=== PATIENT | female | born 1970 | race African-American/Black ===

== ENCOUNTER 2016-05-21 18:18 | Emergency (ER) | payer BC ==
--- NOTE | 2016-05-21 20:11 | ED ---
elmira Vo Timothy, scribed for Aston Lugo MD on 05/21/16 at 2002 . HPI Chest Pain - HPI Summary HPI Summary: Neyda Vazquez is a 45 yo female presenting to [facility] with frequent, irritiating cough since 05/17/16 now with 8/10 CP and HARRINGTON, getting progressively worse. She also c/o myalgia. She states the CP became burning, which is why she is presenting tonight. She states she has not checked to see if she has a fever. She states when she coughs there is pain radiating through her back and increasing in her chest. Her Hx includes nephrolithiasis. She does not smoke tobacco. - History of Current Complaint Chief Complaint: EDShortnessOfBreath Time Seen by Provider: 05/21/16 19:54 Onset/Duration: Started Days Ago, Still Present, Worse Since - today Timing: Constant Initial Severity: Moderate Current Severity: Moderate Pain Intensity: 8 Pain Scale Used: 0-10 Numeric Character: Burning Aggravating Factor(s): Other: - cough - Allergy/Home Medications Allergies/Adverse Reactions: Allergies Allergy/AdvReac Type Severity Reaction Status Date / Time No Known Allergies Allergy Verified 10/26/14 05:03 PMH/Surg Hx/FS Hx/Imm Hx Endocrine/Hematology History: Denies: Hx Diabetes, Hx Thyroid Disease Cardiovascular History: Denies: Hx Hypertension Respiratory History: Denies: Hx Asthma, Hx Chronic Obstructive Pulmonary Disease (COPD) GI History: Denies: Hx Ulcer History: Reports: Other Problems/Disorders - HX RENAL CALCULI - Surgical History Surgery Procedure, Year, and Place: Infectious Disease History: No Infectious Disease History: Denies: Hx Clostridium Difficile, Hx Hepatitis, Hx Human Immunodeficiency Virus (HIV), Hx of Known/Suspected MRSA, Hx Shingles, Hx Tuberculosis, Hx Known/ Suspected VRE, Hx Known/Suspected VRSA, History Other Infectious Disease, Traveled Outside the [place] in Last 30 Days - Family History Known Family History: Positive: Hypertension, Diabetes Negative: Cardiac Disease - Social History Alcohol Use: Rare Substance Use Type: Reports: None Smoking Status (MU): Never Smoked Tobacco Have You Smoked in the Last Year: No Review of Systems Positive: Fever - possible Eyes: Negative ENT: Negative Positive: Chest Pain Positive: Cough Gastrointestinal: Negative Genitourinary: Negative Positive: Myalgia Skin: Negative Positive: Headache Psychological: Normal All Other Systems Reviewed And Are Negative: Yes Physical Exam Triage Information Reviewed: Yes Vital Signs On Initial Exam: Initial Vitals Temp Pulse Resp BP Pulse Ox 98.9 F 88 20 134/80 100 05/21/16 18:30 05/21/16 18:30 05/21/16 18:30 05/21/16 18:30 05/21/16 18:30 Vital Signs Reviewed: Yes Appearance: Positive: Well-Appearing, No Pain Distress Skin: Positive: Warm Head/Face: Positive: Normal Head/Face Inspection Eyes: Positive: CRISTINA ENT: Positive: Hearing grossly normal Neck: Positive: Supple Respiratory/Lung Sounds: Positive: Clear to Auscultation, Breath Sounds Present Cardiovascular: Positive: RRR Abdomen Description: Positive: Nontender, Soft Bowel Sounds: Positive: Present Musculoskeletal: Positive: Strength/ROM Intact Neurological: Positive: Sensory/Motor Intact, Alert, Oriented to Person Place, Time Diagnostics - Vital Signs Vital Signs Temp Pulse Resp BP Pulse Ox 05/21/16 18:30 98.9 F 88 20 134/80 100 - Laboratory Lab Statement: Any lab studies that have been ordered have been reviewed, and results considered in the medical decision making process. - Radiology CXR Xray Interpretation: No Acute Changes - IMPRESSION: NO ACTIVE CARDIOPULMONARY DISEASE. Radiology Interpretation Completed By: Radiologist - EKG 1856 Cardiac Rate: NL - 88 BPM EKG Interpretation: NSR @ 88 BPM. Normal EKG. Re-Evaluation - Re-Evaluation First Eval Re-Evaluation Time: 21:34 Change: Improved Comment: Pt was informed of results of flu test, and given additional instructions regarding treatment. Chest Pain Course/Dx - Course Assessment/Plan: Neyda Vazquez is a 45 yo female presenting to [facility] with 8/10 CP, HARRINGTON, and persistent cough since 05/17/16. After negative CXR and negative rapid flu tests, she will be discharged home with viral syndrome. - Diagnoses Provider Diagnoses: Viral syndrome Discharge - Discharge Plan Condition: Stable Disposition: HOME Patient Education Materials: Viral Syndrome (ED) Referrals: Vishal Fuller MD [Primary Care Provider] - 2 Days Additional Instructions: Please follow up with your primary care physician regarding your visit to the emergency department today. Return to the emergency department with any new or recurring symptoms. The documentation as recorded by the elmira hinojosa Timothy accurately reflects the service I personally performed and the decisions made by me, Aston Lugo MD.
--- NOTE | 2016-05-21 20:16 | RAD ---
HISTORY: Chest pain COMPARISONS: January 16, 2014 VIEWS: 2: Frontal dual-energy and lateral views of the chest. FINDINGS: CARDIOMEDIASTINAL SILHOUETTE: The cardiomediastinal silhouette is normal. TRACY: The tracy are normal. PLEURA: The costophrenic angles are sharp. No pleural abnormalities are noted. LUNG PARENCHYMA: The lungs are clear. ABDOMEN: The upper abdomen is clear. There is no subphrenic gas. BONES AND SOFT TISSUES: No bone or soft tissue abnormalities are noted. OTHER: None. IMPRESSION: NO ACTIVE CARDIOPULMONARY DISEASE.
[2016-05-21] MEDS ORDERED: Ketorolac INJ* 60 MG/2 ML VIAL IM ONE (20:39)
[2016-05-21 22:00] VITALS: BP 124/85
== END 2016-05-21 21:57 | disposition home or self-care (01) ==
LOC: ED 18:18
DX: B34.9 Viral infection, unspecified (principal); R05 Cough; R07.9 Chest pain, unspecified; R50.9 Fever, unspecified; R51 Headache
CPT/HCPCS: 71020; 87502; 93005; 96372; 99283; J1885

== ENCOUNTER 2017-01-20 16:06 | Emergency (ER) | payer BC ==
[2017-01-20 16:23] VITALS: BP 109/50
--- NOTE | 2017-01-20 16:46 | UC ---
Skin Complaint HPI - HPI Summary HPI Summary: 46 year old female presents with lower back pain secondary to sleeping on a low bed. - History of Current Complaint Chief Complaint: UCBackPain Time Seen by Provider: 01/20/17 16:42 Stated Complaint: BACK PAIN Hx Obtained From: Patient Hx Last Menstrual Period: 12/17 Onset/Duration: Sudden Onset Skin Exposure Onset/Duration: Days Ago Onset Severity: Moderate Current Severity: Moderate Pain Scale Used: 0-10 Numeric - 8 Alleviating Factor(s): Nothing - Allergy/Home Medications Allergies/Adverse Reactions: Allergies Allergy/AdvReac Type Severity Reaction Status Date / Time No Known Allergies Allergy Verified 10/26/14 05:03 Review of Systems Constitutional: Negative Skin: Negative Eyes: Negative ENT: Negative Respiratory: Negative Cardiovascular: Negative Gastrointestinal: Negative Genitourinary: Negative Motor: Negative Neurovascular: Negative Musculoskeletal: Other: - lower back pain Neurological: Negative Psychological: Negative All Other Systems Reviewed And Are Negative: Yes PMH/Surg Hx/FS Hx/Imm Hx Previously Healthy: Yes - Surgical History Surgical History: Yes Surgery Procedure, Year, and Place: - Family History Known Family History: Positive: Hypertension, Diabetes Negative: Cardiac Disease - Social History Alcohol Use: Rare Substance Use Type: None Smoking Status (MU): Never Smoked Tobacco Have You Smoked in the Last Year: No Physical Exam Triage Information Reviewed: Yes Appearance: Pain Distress Vital Signs: Initial Vital Signs Temp 37.1 C 01/20/17 16:18 Pulse 91 01/20/17 16:18 Resp 18 01/20/17 16:18 BP 109/50 01/20/17 16:18 Pulse Ox 100 01/20/17 16:18 Vital Signs Reviewed: Yes Eye Exam: Normal ENT Exam: Normal Dental Exam: Normal Neck exam: Normal Neck: Positive: 1 Respiratory Exam: Normal Cardiovascular Exam: Normal Abdominal Exam: Normal Musculoskeletal: Positive: Other: - lower back pain Neurological Exam: Normal Psychological Exam: Normal Skin Exam: Normal Course/Dx - Diagnoses Provider Diagnoses: lower back pain Discharge - Discharge Plan Condition: Stable Disposition: HOME Prescriptions: Methocarbamol TAB* [Robaxin 500 MG TAB*] 500 mg PO TID PRN #30 tab PRN Reason: Spasms - Back Methylprednisolone [Medrol Dosepak 4 MG*] 4 mg PO .SEE ROSEANNE INSTRUCTION #21 tab Patient Education Materials: Sacroiliitis (ED) Referrals: Vishal Fuller MD [Primary Care Provider] -
== END 2017-01-20 17:00 | disposition home or self-care (01) ==
LOC: UCEAST 16:06
DX: M54.5 Low back pain (principal)
CPT/HCPCS: 99212; G0463

== ENCOUNTER 2017-02-11 21:46 | Emergency (ER) | payer BC ==
[2017-02-11 23:49] LABS: Hematocrit 27 % (35-47); Hemoglobin 8.5 g/dl (12.0-16.0); Mean Corpuscular HGB Conc 32 g/dl (31-36); Mean Corpuscular Hemoglobin 24 pg (27-31); Mean Corpuscular Volume 74 fL (80-97); Mean Platelet Volume 8 um3 (7.4-10.4); Red Blood Count 3.59 10^6/ul (4.0-5.4); Red Cell Distribution Width 17 % (10.5-15); White Blood Count 6.8 10^3/ul (3.5-10.8)
[2017-02-11 23:57] LABS: Add Diff/Slide Review? Slide Review Added; Comments Flag Yes
[2017-02-12 00:21] LABS: Albumin 3.6 g/dL (3.2-5.2); Calcium 9.1 mg/dL (8.6-10.3); EGFR African American 126.8 (>60); EGFR Non-African American 98.6 (>60); Globulin 3.6 g/dL (2-4); Potassium 3.5 mmol/L (3.5-5.0); Total Bilirubin 0.3 mg/dL (0.2-1.0); Total Protein 7.2 g/dL (6.4-8.9)
[2017-02-12 00:22] LABS: Troponin I 0.01 ng/mL (<0.04)
[2017-02-12 01:13] VITALS: BP 133/79
--- NOTE | 2017-02-12 03:53 | ED ---
Jolynn Vo Edward, scribed for Tasneem Stein MD on 02/11/17 at 2325 . HPI Chest Pain - HPI Summary HPI Summary: 46 y/o female presents to the ED c/o CP and neck pain that has been going on intermittently for around 1 month. Pt states the pain has gotten worse recently. Pt states the CP is mild now. The CP is located in the mid-sternal region described as a sharp pain. Pt states the pain sometimes moves to the L side of her chest. The pain is not aggravated or alleviated by anything. Denies diaphoresis, SOB, N/V. Associated sx: mild HARR[place], fatigue. The neck pain is located at the back of the neck, at midline. Denies relevant PMHx. - History of Current Complaint Chief Complaint: EDGeneral Time Seen by Provider: 02/11/17 23:08 Hx Obtained From: Patient Hx Last Menstrual Period: 12/17 Onset/Duration: Started Weeks Ago Timing: Intermittent Initial Severity: Moderate Current Severity: Moderate Pain Intensity: 4 Pain Scale Used: 0-10 Numeric Chest Pain Location: Mid Sternal Chest Pain Radiates: Yes Chest Pain Radiates To:: Other - L side chest Character: Sharp/Stabbing Aggravating Factor(s): Nothing Alleviating Factor(s): Nothing Associated Signs and Symptoms: Positive: Headaches - mild, Other: - neck pain, fatigue - Allergy/Home Medications Allergies/Adverse Reactions: Allergies Allergy/AdvReac Type Severity Reaction Status Date / Time No Known Allergies Allergy Verified 02/11/17 21:52 PMH/Surg Hx/FS Hx/Imm Hx Previously Healthy: No Endocrine/Hematology History: Denies: Hx Diabetes, Hx Thyroid Disease Cardiovascular History: Denies: Hx Hypertension Respiratory History: Denies: Hx Asthma, Hx Chronic Obstructive Pulmonary Disease (COPD) GI History: Denies: Hx Ulcer History: Reports: Other Problems/Disorders - HX RENAL CALCULI - Surgical History Surgery Procedure, Year, and Place: - Immunization History Date of Influenza Vaccine: none Infectious Disease History: No Infectious Disease History: Denies: Hx Clostridium Difficile, Hx Hepatitis, Hx Human Immunodeficiency Virus (HIV), Hx of Known/Suspected MRSA, Hx Shingles, Hx Tuberculosis, Hx Known/ Suspected VRE, Hx Known/Suspected VRSA, History Other Infectious Disease, Traveled Outside the [place] in Last 30 Days - Family History Known Family History: Positive: Hypertension, Diabetes Negative: Cardiac Disease - Social History Lives: With Family Alcohol Use: Rare Hx Substance Use: No Substance Use Type: Reports: None Hx Tobacco Use: No Smoking Status (MU): Never Smoked Tobacco Have You Smoked in the Last Year: No Review of Systems Positive: Fatigue Eyes: Negative ENT: Negative Positive: Chest Pain Respiratory: Negative Gastrointestinal: Negative Genitourinary: Negative Positive: Myalgia - Neck pain Skin: Negative Positive: Headache - mild Psychological: Normal All Other Systems Reviewed And Are Negative: No Physical Exam - Summary Physical Exam Summary: Appearance: Alert, conversive, nontoxic appearing Skin: Warm, dry, no mottling, no rashes, no contusions HEENT: EOMI, PERRL, moist mucous membranes Neck: No masses on the neck, supple Respiratory: Clear to auscultation, breath sounds present, no rales, no rhonchi , no wheezes Cardiovascular: RRR, pulses are symmetrical in both lower and upper extremities Abdomen: Soft, non-tender Bowel Sounds: Present Musculoskeletal: No CVA tenderness, no obvious deformity, moving all extremities in a grossly normal manner Neurological: A&Ox3, CN II-XII Intact, moving all extremities symmetrically Psychiatric: Normal affect and mood Triage Information Reviewed: Yes Vital Signs On Initial Exam: Initial Vitals Temp Pulse Resp BP Pulse Ox 98.6 F 74 18 123/76 100 02/11/17 21:47 02/11/17 21:47 02/11/17 21:47 02/11/17 21:47 02/11/17 21:47 Vital Signs Reviewed: Yes - [place] Coma Scale Coma Scale Total: 15 Diagnostics - Vital Signs Vital Signs Temp Pulse Resp BP Pulse Ox 02/11/17 21:47 98.6 F 74 18 123/76 100 - Laboratory Lab Results: Lab Results 02/11/17 02/11/17 02/11/17 Range/Units 23:23 23:23 23:23 WBC 6.8 (3.5-10.8) 10^3/ul RBC 3.59 L (4.0-5.4) 10^6/ul Hgb 8.5 L (12.0-16.0) g/dl Hct 27 L (35-47) % MCV 74 L (80-97) fL MCH 24 L (27-31) pg MCHC 32 (31-36) g/dl RDW 17 H (10.5-15) % Plt Count 282 (150-450) 10^3/ul MPV 8 (7.4-10.4) um3 Neut % (Auto) 61.8 (38-83) % Lymph % (Auto) 28.3 (25-47) % [place] % (Auto) 8.3 (1-9) % Eos % (Auto) 1.2 (0-6) % Baso % (Auto) 0.4 (0-2) % Absolute Neuts (auto) 4.2 (1.5-7.7) 10^3/ul Absolute Lymphs (auto) 1.9 (1.0-4.8) 10^3/ul Absolute Monos (auto) 0.6 (0-0.8) 10^3/ul Absolute Eos (auto) 0.1 (0-0.6) 10^3/ul Absolute Basos (auto) 0 (0-0.2) 10^3/ul Absolute Nucleated RBC 0 10^3/ul Nucleated RBC % 0.1 D-Dimer, Quantitative < 200 (Less Than 230) ng/mL Sodium 135 (133-145) mmol/L Potassium 3.5 (3.5-5.0) mmol/L Chloride 105 (101-111) mmol/L Carbon Dioxide 26 (22-32) mmol/L Anion Gap 4 (2-11) mmol/L BUN 13 (6-24) mg/dL Creatinine 0.65 (0.51-0.95) mg/dL Est GFR ( Amer) 126.8 (>60) Est GFR (Non-Af Amer) 98.6 (>60) BUN/Creatinine Ratio 20.0 (8-20) Glucose 113 H (70-100) mg/dL Calcium 9.1 (8.6-10.3) mg/dL Total Bilirubin 0.30 (0.2-1.0) mg/dL AST 15 (13-39) U/L ALT 11 (7-52) U/L Alkaline Phosphatase 58 (34-104) U/L Troponin I 0.01 (<0.04) ng/mL Total Protein 7.2 (6.4-8.9) g/dL Albumin 3.6 (3.2-5.2) g/dL Globulin 3.6 (2-4) g/dL Albumin/Globulin Ratio 1.0 (1-3) Lipase 15 (11.0-82.0) U/L Result Diagrams: 02/11/17 23:23 02/11/17 23:23 Lab Statement: Any lab studies that have been ordered have been reviewed, and results considered in the medical decision making process. - Radiology CXR Xray Interpretation: No Acute Changes Radiology Interpretation Completed By: ED Physician - EKG 1 EKG Interpretation: 22:05 - SR @ 67 BPM. NORMAL AXIS. NO STEMI. Chest Pain Course/Dx - Course Assessment/Plan: 46 y/o female presents to the ED c/o CP and neck pain that has been going on intermittently for around 1 month. Pt states the pain has gotten worse recently. The CP is mild currently. The CP is located in the mid-sternal region described as a sharp pain. Pt states the pain sometimes moves to the L side of her chest. The pain is not aggravated or alleviated by anything. Denies diaphoresis, SOB, N/V. The neck pain is located at the back of the neck, at midline. Denies relevant PMHx. Test results show chronic anemia. CXR negative. Pt will be d/c home and instructed to f/u with an outpatient stress test. - Diagnoses Provider Diagnoses: Chest pain, Neck pain Discharge - Discharge Plan Condition: Stable Disposition: HOME Patient Education Materials: Chest Pain (ED), Anemia (ED) Referrals: Vishal Fuller MD [Primary Care Provider] - 3 Days Additional Instructions: Follow up with your primary care physician. return if worse or any new symptoms. It is important to discuss with your doctor the need for an outpatient cardiac stress test. Please also discuss with your doctor your anemia. You labs show that you probably have iron deficiency anemia. discuss with your doctor the need to start iron pills. this has been ongoing when I reviewed your labs, however, it is important to discuss with your doctor. The documentation as recorded by the Jolynn hinojosa Edward accurately reflects the service I personally performed and the decisions made by me, Tasneem Stein MD.
--- NOTE | 2017-02-12 07:48 | RAD ---
HISTORY: Chest pain COMPARISONS: May 21, 2016 VIEWS: 1: frontal portable view of the chest at 11:15 PM FINDINGS: LINES AND TUBES: None. CARDIOMEDIASTINAL SILHOUETTE: The cardiomediastinal silhouette is normal for portable technique. PLEURA: The costophrenic angles are sharp. No pleural abnormalities are noted. LUNG PARENCHYMA: The lungs are clear. ABDOMEN: The upper abdomen is clear. There is no subphrenic gas. BONES AND SOFT TISSUES: No bone or soft tissue abnormalities are noted. IMPRESSION: NO ACTIVE CARDIOPULMONARY DISEASE.
== END 2017-02-12 01:09 | disposition home or self-care (01) ==
LOC: ED 21:46
DX: R07.89 Other chest pain (principal); M54.2 Cervicalgia; R51 Headache; R53.83 Other fatigue
CPT/HCPCS: 36415; 71010; 80053; 83690; 84484; 85025; 85379; 93005; 99282

== ENCOUNTER 2017-05-25 15:15 | Emergency (ER) | payer BC ==
[2017-05-25 15:39] VITALS: BP 136/75
--- NOTE | 2017-05-25 15:40 | UC ---
Abdominal Pain Female HPI - HPI Summary HPI Summary: Pt presents with abdominal pain and vomiting for 5 days. She tells me that on Sunday she began having generalized abdominal pain and vomiting - unable to tolerate food or liquids. This persisted through sunday night. Sunday she woke and felt a little better, but very weak. Yesterday evening she tried to eat dinner, but quickly developed stabbing abdominal pain and began vomiting again. She was unable to sleep all last night and this morning her pain and vomiting persisted. Today she is always having pain in her RLQ and right flank. Says that she has a history of kidney stones and is unsure if this feels the same. Denies fever, chills, SOB, chest pain, or diarrhea. - History of Current Complaint Stated Complaint: VOMITING Time Seen by Provider: 05/25/17 15:39 Hx Obtained From: Patient Hx Last Menstrual Period: 12/17 Severity Initially: Severe Severity Currently: Severe Pain Intensity: 10 Pain Scale Used: 0-10 Numeric Location: Diffuse Radiates: Yes Radiates to: Flank, RLQ Character: Colicy, Cramping, Sharp Aggravating Factor(s): Food Alleviating Factor(s): Nothing Allergies/Adverse Reactions: Allergies Allergy/AdvReac Type Severity Reaction Status Date / Time No Known Allergies Allergy Verified 05/25/17 15:30 PMH/Surg Hx/FS Hx/Imm Hx Previously Healthy: Yes - Surgical History Surgical History: Yes Surgery Procedure, Year, and Place: - Family History Known Family History: Positive: Hypertension, Diabetes Negative: Cardiac Disease - Social History Lives: With Family Alcohol Use: Rare Substance Use Type: None Smoking Status (MU): Never Smoked Tobacco Have You Smoked in the Last Year: No Review of Systems Constitutional: Negative Skin: Negative Eyes: Negative ENT: Negative Respiratory: Negative Cardiovascular: Negative Gastrointestinal: Abdominal Pain, Vomiting, Nausea Genitourinary: Negative Motor: Negative Musculoskeletal: Negative Neurological: Negative Psychological: Negative All Other Systems Reviewed And Are Negative: Yes Physical Exam Triage Information Reviewed: Yes Appearance: Ill-Appearing, Pain Distress, Other: - Lips are dry and she appears dehydrated Vital Signs Reviewed: Yes Neck: Positive: Supple, Nontender, No Lymphadenopathy Respiratory: Positive: Lungs clear, Normal breath sounds, No respiratory distress, No accessory muscle use Cardiovascular: Positive: RRR, No Murmur, Pulses Normal Abdomen Description: Positive: No Organomegaly, Soft, Other: - Generalized mild to moderate TTP. Negative: CVA Tenderness (R), CVA Tenderness (L), Distended, Guarding, Peritoneal Signs, Pulsatile Mass Bowel Sounds: Positive: Present Neurological: Positive: Alert Skin: Negative: rashes, significant lesion(s) Abd Pain Female Course/Dx - Course Course Of Treatment: Given patient's prolonged vomiting, history, and concerning exam, I strongly recommened pt seek further evaluation in the ED. I offered to call them an ambulance, but she declined and will have her drive her to [facility]. Left in stable condition. - Differential Dx/Diagnosis Provider Diagnoses: Vomiting. Abdominal pain Discharge - Discharge Plan Condition: Stable Disposition: OTHER Discharge Disposition Comment: To [facility] by private car - driving Referrals: Vishal Fuller MD [Primary Care Provider] - Additional Instructions: Please go directly to the ED for further evaluation of your vomiting and severe abdominal pain
== END 2017-05-25 15:44 ==
LOC: UCEAST 15:15
DX: R10.31 Right lower quadrant pain (principal); R11.10 Vomiting, unspecified; Z87.442 Personal history of urinary calculi
CPT/HCPCS: 99212; G0463

== ENCOUNTER 2017-05-25 16:05 | Emergency (ER) | payer BC ==
[2017-05-25] MEDS ORDERED: NS 0.9% 1000 ML* 1,000 ML IV ONE (17:44)
[2017-05-25] MEDS ORDERED: Ketorolac INJ* 30 MG/ML 1 ML VIAL IV PUSH ONE (17:44)
[2017-05-25] MEDS ORDERED: Acetaminophen TAB* 325 MG PO ONE (17:44)
[2017-05-25] MEDS ORDERED: Metoclopramide IV* 5 MG/ML 2 ML VIAL IV SLOW PU ONE (17:45)
[2017-05-25 18:32] LABS: INR 1.02 (0.77-1.02)
--- NOTE | 2017-05-25 18:34 | RAD ---
INDICATION: Right flank pain COMPARISON: CPT May 03, 2012 TECHNIQUE: Noncontrast axial source images were acquired from the level hemidiaphragms to the symphysis pubis as part of CT imaging for renal stone. Lung bases: The lung bases are clear. Liver: The liver is normal in size. Noncontrast imaging shows no evidence of a hepatic mass or ductal dilatation. Gallbladder: There are no calcified gallstones. There is no evidence of wall thickening or pericholecystic fluid.. Spleen: The spleen is normal in size. The noncontrast CT appearance is normal. Pancreas: Noncontrast imaging shows no pancreatic mass or ductal dilitation. Adrenal glands: No masses are identified. Kidneys/Bladder: There is a nonobstructing upper pole right renal calculus measuring 2 mm. There is a 3 mm proximal to mid right ureteral calculus which is the cause of mild obstruction with resultant proximal right hydroureter and hydronephrosis. There are no additional calcifications of urinary significance. Adenopathy: There is no evidence of intraperitoneal or retroperitoneal adenopathy. Evaluation is limited without oral contrast. Fluid collections: There are no free or localized fluid collections. Vessels: The aorta and iliac vessels are normal in caliber. There are no significant atherosclerotic changes. The IVC appears normal Pelvic organs: The uterus is enlarged and lobular with mild interval increase in size. Finding is compatible with a fibroid uterus. This can be evaluated with nonemergent ultrasound follow-up. GI tract: Evaluation of the bowel is limited without oral contrast. The stomach, small bowel, and lower GI tract appear grossly normal. There are no obstructive findings. The appendix is visualized and appears normal. Soft tissues: No soft tissue abnormalities of the extraperitoneal abdomen or pelvis are identified. Osseous structures: There are no acute osseous findings. IMPRESSION: 1. 3 mm proximal to mid right ureteral calculus with mild obstructive findings. Additional nonobstructive 2 mm right renal calculus. 2. Fibroid uterus.
[2017-05-25 18:37] LABS: EGFR Non-African American 93.6 (>60)
[2017-05-25 18:39] LABS: ABS Basophils 0 10^3/ul (0-0.2); ABS Eosinophils 0 10^3/ul (0-0.6); ABS Lymphocytes 1.7 10^3/ul (1.0-4.8); ABS Monocytes 0.5 10^3/ul (0-0.8); ABS Neutrophils 7.8 10^3/ul (1.5-7.7); ABS Nucleated RBC 0 10^3/ul; Eosinophil % 0.5 % (0-6); Hematocrit 27 % (35-47); Hemoglobin 8.6 g/dl (12.0-16.0); Lymphocyte % 16.8 % (25-47); Mean Corpuscular HGB Conc 32 g/dl (31-36); Mean Corpuscular Hemoglobin 22 pg (27-31); Mean Corpuscular Volume 70 fL (80-97); Mean Platelet Volume 8 um3 (7.4-10.4); Nucleated Red Blood Cells % 0.1; Platelet Count 327 10^3/ul (150-450); Red Blood Count 3.87 10^6/ul (4.0-5.4); Red Cell Distribution Width 17 % (10.5-15)
[2017-05-25] MEDS ORDERED: Tamsulosin CAP* 0.4 MG PO ONE (18:54)
[2017-05-25 20:15] LABS: Urine Appearance Clear; Urine Blood 2+ (Negative); Urine Color Straw; Urine Ketones Negative (Negative); Urine Protein Negative (Negative); Urine Specific Gravity 1.004 (1.010-1.030); Urine Urobilinogen Negative (Negative)
--- NOTE | 2017-05-25 20:37 | ED ---
Steffanie Vo Gabriel, scribkory for Connie Arzola MD on 05/25/17 at 1745 . GI/ HPI - HPI Summary HPI Summary: This patient is a 46 year old F presenting to [facility] accompanied by her partner with a chief complaint of n/v/d since 05-21-17. The patient rates the pain 8/10 in severity. Patient reports right flank pain, fever, increased urinary frequency, ABD pain, and chills. Patient denies dysuria. Hx of kidney stones. - History of Current Complaint Chief Complaint: EDNauseaVomitDiarrh Time Seen by Provider: 05/25/17 17:31 Stated Complaint: VOMITING/DIARRHEA/ABD PAIN Hx Obtained From: Patient Hx Last Menstrual Period: 12/17 Onset/Duration: Started Days Ago, Still Present Timing: Intermittent Severity: Moderate Current Severity: Mild Pain Intensity: 8 Location of Pain: Diffuse, Flank - right Associated Signs and Symptoms: Positive: Negative - dysuria, Other: - right flank pain, fever, increased urinary frequency, chills, - Allergy/Home Medications Allergies/Adverse Reactions: Allergies Allergy/AdvReac Type Severity Reaction Status Date / Time No Known Allergies Allergy Verified 05/25/17 15:30 PMH/Surg Hx/FS Hx/Imm Hx Endocrine/Hematology History: Denies: Hx Diabetes, Hx Thyroid Disease Cardiovascular History: Denies: Hx Hypertension Respiratory History: Denies: Hx Asthma, Hx Chronic Obstructive Pulmonary Disease (COPD) GI History: Denies: Hx Ulcer History: Reports: Hx Kidney Stones, Other Problems/Disorders - HX RENAL CALCULI - Surgical History Surgery Procedure, Year, and Place: - Immunization History Date of Influenza Vaccine: none Infectious Disease History: No Infectious Disease History: Denies: Hx Clostridium Difficile, Hx Hepatitis, Hx Human Immunodeficiency Virus (HIV), Hx of Known/Suspected MRSA, Hx Shingles, Hx Tuberculosis, Hx Known/ Suspected VRE, Hx Known/Suspected VRSA, History Other Infectious Disease, Traveled Outside the [place] in Last 30 Days - Family History Known Family History: Positive: Hypertension, Diabetes Negative: Cardiac Disease - Social History Lives: With Family Alcohol Use: Rare Hx Substance Use: No Substance Use Type: Reports: None Hx Tobacco Use: No Smoking Status (MU): Never Smoked Tobacco Have You Smoked in the Last Year: No Review of Systems Positive: Fever, Chills Positive: Abdominal Pain, Vomiting, Diarrhea, Nausea Positive: urgency. Negative: dysuria All Other Systems Reviewed And Are Negative: Yes Physical Exam - Summary Physical Exam Summary: VITAL SIGNS: Reviewed. GENERAL: Patient is a well-developed and nourished female who is lying comfortable in the stretcher. Patient is not in any acute respiratory distress. HEAD AND FACE: No signs of trauma. No ecchymosis, hematomas or skull depressions. No sinus tenderness. EYES: PERRLA, EOMI x 2, No injected conjunctiva, no nystagmus. EARS: Hearing grossly intact. Ear canals and tympanic membranes are within normal limits. MOUTH: Oropharynx within normal limits. NECK: Supple, trachea is midline, no adenopathy, no JVD, no carotid bruit, no c- spine tenderness, neck with full ROM. CHEST: Symmetric, no tenderness at palpation LUNGS: Clear to auscultation bilaterally. No wheezing or crackles. CVS: Regular rate and rhythm, S1 and S2 present, no murmurs or gallops appreciated. ABDOMEN: Soft, RLQ/RUQ/Right flank tenderness No signs of distention. No rebound no guarding, and no masses palpated. Bowel sounds are normal. EXTREMITIES: FROM in all major joints, no edema, no cyanosis or clubbing. NEURO: Alert and oriented x 3. No acute neurological deficits. Speech is normal and follows commands. SKIN: Dry and warm Triage Information Reviewed: Yes Vital Signs On Initial Exam: Initial Vitals Temp Pulse Resp BP Pulse Ox 98.7 F 82 18 119/73 100 05/25/17 16:15 05/25/17 16:15 05/25/17 16:15 05/25/17 16:15 05/25/17 16:15 Vital Signs Reviewed: Yes Diagnostics - Vital Signs Vital Signs Temp Pulse Resp BP Pulse Ox 05/25/17 16:15 98.7 F 82 18 119/73 100 - Laboratory Result Diagrams: 05/25/17 18:10 05/25/17 18:10 Lab Statement: Any lab studies that have been ordered have been reviewed, and results considered in the medical decision making process. - CT CT ABD/Pelvis CT Interpretation Completed By: Radiologist - 1. 3 mm proximal to mid right ureteral calculus with mild obstructive findings. Additional nonobstructive 2 mm right renal calculus. 2. Fibroid uterus. ED physician has reviewed this radiology report. GIGU Course/Dx - Course Assessment/Plan: This patient is a 46 year old F presenting to [facility] accompanied by her partner with a chief complaint of n/v/d since 05-21-17. The patient rates the pain 8/10 in severity. Patient reports right flank pain, fever , increased urinary frequency, ABD pain, and chills. Patient denies dysuria. Hx of kidney stones. CT ABD pelvis reveals, per radiologist, 1. 3 mm proximal to mid right ureteral calculus with mild obstructive findings. Additional nonobstructive 2 mm right renal calculus. 2. Fibroid uterus. Test results with no significant abnormalities. UA and blood work obtained. In the ED course the patient was given Tylenol, toradol, Flomax, IV fluids, and Reglan. Dx right urethral stones and renal colic. Patient will be discharged with prescription for Floamx and percocet and follow up from . The patient is agreeable with this plan. - Diagnoses Provider Diagnoses: Urethral stone, Renal colic on right side Discharge - Discharge Plan Condition: Stable Disposition: HOME Prescriptions: oxyCODONE/Acetamin 5/325 MG* [Percocet 5/325 TAB*] 1 tab PO Q6H PRN #14 tab MDD 4 PRN Reason: Pain Tamsulosin CAP* [Flomax CAP*] 0.4 mg PO DAILY #7 cap Patient Education Materials: Kidney Stones (ED) Referrals: Vishal Fuller MD [Primary Care Provider] - Additional Instructions: RETURN TO EMERGENCY DEPARTMENT FOR ANY NEW OR WORSENING SYMPTOMS The documentation as recorded by the Steffanie hinojosa Gabriel accurately reflects the service I personally performed and the decisions made by Ness lima Abdul, MD.
[2017-05-25 20:45] VITALS: BP 112/55
== END 2017-05-25 20:48 | disposition home or self-care (01) ==
LOC: ED 16:05
DX: N21.1 Calculus in urethra (principal); N13.2 Hydronephrosis with renal and ureteral calculous obstruction; D25.9 Leiomyoma of uterus, unspecified; Z87.442 Personal history of urinary calculi
CPT/HCPCS: 36415; 74176; 80053; 81003; 81015; 83605; 85025; 85610; 85730; 86140; 87040; 96361; 96374; 96375; 99284; A9270-GY; J1885; J2765

== ENCOUNTER 2017-07-24 19:52 | Emergency (ER) | payer BC ==
[2017-07-24 20:12] VITALS: BP 123/91
--- NOTE | 2017-07-24 20:15 | UC ---
Hand/Wrist HPI - HPI Summary HPI Summary: Pt presents with right thumb pain. She tells me that last night she was running around the house chasing her toddler daughter. She went to grab her and jammed her right thumb on the edge of the cough. The distal nail bent backwards, which she quickly put back flat. Had immediate pain. Today the IP joint is swollen and very painful. Has taken ibuprofen for pain with good relief. - History Of Current Complaint Chief Complaint: UCUpperExtremity Stated Complaint: R THUMB INJURY Time Seen by Provider: 07/24/17 20:15 Hx Obtained From: Patient Hx Last Menstrual Period: 06/24/17 Onset/Duration: Sudden Onset Severity Initially: Severe Severity Currently: Severe Pain Intensity: 8 Pain Scale Used: 0-10 Numeric - Allergies/Home Medications Allergies/Adverse Reactions: Allergies Allergy/AdvReac Type Severity Reaction Status Date / Time No Known Allergies Allergy Verified 07/24/17 20:12 PMH/Surg Hx/FS Hx/Imm Hx - Additional Past Medical History Additional PMH: None Previously Healthy: Yes - Surgical History Surgical History: Yes Surgery Procedure, Year, and Place: - Family History Known Family History: Positive: Hypertension, Diabetes Negative: Cardiac Disease - Social History Occupation: Employed Full-time Lives: With Family Alcohol Use: Rare Substance Use Type: None Smoking Status (MU): Never Smoked Tobacco Have You Smoked in the Last Year: No Review of Systems Constitutional: Negative Skin: Negative Respiratory: Negative Cardiovascular: Negative Neurovascular: Negative Musculoskeletal: Decreased ROM - Right thumb, Other: - Right thumb pain Neurological: Negative Psychological: Negative All Other Systems Reviewed And Are Negative: Yes Physical Exam - Summary Physical Exam Summary: GENERAL: NAD. WDWN. No pain distress. SKIN: No rashes, sores, ulcers, masses, lesions. NECK: Supple. Nontender. No lymphadenopathy. CHEST: No accessory muscle use. Breathing comfortably and in no distress. CV: Pulses intact radial and ulnar. MSK: Severe TTP over right thumb IP joint. Unable to flex or fully extend without pain. Moderate edema. No obvious bony deformities. No snuffbox tenderness or wrist TTP.. NEURO: Alert. Sensations intact hand and all fingers. PSYCH: Age appropriate behavior. Triage Information Reviewed: Yes Vital Signs: Initial Vital Signs Temp 98.2 F 07/24/17 20:07 Pulse 81 07/24/17 20:07 Resp 18 07/24/17 20:07 BP 123/91 07/24/17 20:07 Pulse Ox 99 07/24/17 20:07 Hand/Wrist Course/Dx - Course Course Of Treatment: XR: IMPRESSION: No fracture of the right thumb is noted. Suspect sprain. Offered thumb spica splint or finger splint - she elected for the finger splint and will continue to take ibuprofen. F/u prn - Differential Dx/Diagnosis Provider Diagnoses: Right thumb sprain Discharge - Sign-Out/Discharge Documenting (check all that apply): Discharge/Admit/Transfer - Discharge Plan Condition: Stable Disposition: HOME Patient Education Materials: Finger Sprain (ED) Referrals: Vishal Fuller MD [Primary Care Provider] - Additional Instructions: If you develop a fever, shortness of breath, chest pain, new or worsening symptoms - please call your PCP or go to the ED. 1) Elevate and Ice your finger as much as possible over the next 24-48hours 2) May take ibuprofen 600mg every 6-8hours as needed for pain 3) Use your finger splint as needed for comfort and added protection - Billing Disposition and Condition Condition: STABLE Disposition: HOME
--- NOTE | 2017-07-24 20:46 | RAD ---
Indication: Right thumb injury. 3 views of the right thumb demonstrates no fracture. No other bone or joint abnormality is noted. IMPRESSION: No fracture of the right thumb is noted.
== END 2017-07-24 21:14 | disposition home or self-care (01) ==
LOC: UCEAST 19:52
DX: S63.601A Unspecified sprain of right thumb, initial encounter (principal); W22.8XXA Striking against or struck by other objects, initial encounter; Y93.02 Activity, running; Y92.9 Unspecified place or not applicable
CPT/HCPCS: 99211; G0463

== ENCOUNTER 2018-02-05 00:37 | Observation (INO) | payer BC ==
[2018-02-05] MEDS ORDERED: Al Hydrox/Mg Hydrox/Simet LIQ* 30 ML UDC PO ONE (01:04)
[2018-02-05] MEDS ORDERED: Lidocaine 2% VISCOUS* 15 ML UDC PO ONE (01:04)
--- NOTE | 2018-02-05 01:19 | ED ---
Abdominal Pain/Female - HPI Summary HPI Summary: Patient is a 47 y/o F w/ c/o epigastric pain onsetting 02/03/18. Pain is reported to be constant and wax and wane in intensity. Epigastric pain is noted to radiate to her chest. She also reports some dizziness and nausea. Vomiting, burping, back jenkins, arm pain is denied. PMHx of GERD is denied, PSHx of section is noted. On triage, pain is rated 5/10, fluids are noted to alleviate Sx, nothing is reported to aggravate Sx. Home medications and allergies are reviewed. - History of Current Complaint Chief Complaint: EDAbdPain Stated Complaint: CHEST PAIN Hx Obtained From: Patient Hx Last Menstrual Period: 06/24/17 Onset/Duration: Lasting Days - two days, Still Present Timing: Constant Severity Currently: Moderate - 5/10 Pain Intensity: 5 Location: Epigastric Radiates: Yes Radiates to: Chest Aggravating Factor(s): Nothing Alleviating Factor(s): Nothing Associated Signs and Symptoms: Positive: Nausea, Other: - NEGATIVE: arm pain, burping POSITIVE: dizziness. Negative: Back Pain, Vomiting Allergies/Adverse Reactions: Allergies Allergy/AdvReac Type Severity Reaction Status Date / Time No Known Allergies Allergy Verified 02/05/18 00:55 PMH/Surg Hx/FS Hx/Imm Hx Endocrine/Hematology History: Denies: Hx Diabetes, Hx Thyroid Disease Cardiovascular History: Denies: Hx Hypertension Respiratory History: Denies: Hx Asthma, Hx Chronic Obstructive Pulmonary Disease (COPD) GI History: Denies: Hx Ulcer History: Reports: Hx Kidney Stones, Other Problems/Disorders - HX RENAL CALCULI - Surgical History Surgery Procedure, Year, and Place: - Immunization History Date of Tetanus Vaccine: utd Date of Influenza Vaccine: none Infectious Disease History: No Infectious Disease History: Denies: Hx Clostridium Difficile, Hx Hepatitis, Hx Human Immunodeficiency Virus (HIV), Hx of Known/Suspected MRSA, Hx Shingles, Hx Tuberculosis, Hx Known/ Suspected VRE, Hx Known/Suspected VRSA, History Other Infectious Disease, Traveled Outside the [place] in Last 30 Days - Family History Known Family History: Positive: Hypertension, Diabetes Negative: Cardiac Disease - Social History Alcohol Use: Rare Hx Substance Use: No Substance Use Type: Reports: None Hx Tobacco Use: No Smoking Status (MU): Never Smoked Tobacco Have You Smoked in the Last Year: No Review of Systems Positive: Abdominal Pain - epigastric with radiation to chest , Nausea, Other - NEGATIVE: burping . Negative: Vomiting Positive: Other - NEGATIVE: back pain, arm pain Neurological: Other - POSITIVE: dizziness All Other Systems Reviewed And Are Negative: Yes Physical Exam - Summary Physical Exam Summary: VITAL SIGNS: Reviewed. GENERAL: Patient is a well-developed and nourished female who is lying comfortable in the stretcher. Patient is not in any acute respiratory distress. HEAD AND FACE: No signs of trauma. No ecchymosis, hematomas or skull depressions. No sinus tenderness. EYES: PERRLA, EOMI x 2, No injected conjunctiva, no nystagmus. EARS: Hearing grossly intact. Ear canals and tympanic membranes are within normal limits. MOUTH: Oropharynx within normal limits. NECK: Supple, trachea is midline, no adenopathy, no JVD, no carotid bruit, no c- spine tenderness, neck with full ROM. CHEST: Symmetric, no tenderness at palpation LUNGS: Clear to auscultation bilaterally. No wheezing or crackles. CVS: Regular rate and rhythm, S1 and S2 present, no murmurs or gallops appreciated. ABDOMEN: Soft, epigastric tenderness. No signs of distention. No rebound no guarding, and no masses palpated. Bowel sounds are normal. EXTREMITIES: FROM in all major joints, no edema, no cyanosis or clubbing. NEURO: Alert and oriented x 3. No acute neurological deficits. Speech is normal and follows commands. SKIN: Dry and warm Triage Information Reviewed: Yes Vital Signs On Initial Exam: Initial Vitals Temp Pulse Resp BP Pulse Ox 97.8 F 84 16 123/49 98 02/05/18 00:40 02/05/18 00:40 02/05/18 00:40 02/05/18 00:40 02/05/18 00:40 Vital Signs Reviewed: Yes Diagnostics - Vital Signs Vital Signs Temp Pulse Resp BP Pulse Ox 02/05/18 00:40 97.8 F 84 16 123/49 98 - Laboratory Result Diagrams: 02/05/18 01:11 02/05/18 01:11 Lab Statement: Any lab studies that have been ordered have been reviewed, and results considered in the medical decision making process. - Radiology CXR Radiology Interpretation Completed By: ED Physician Summary of Radiographic Findings: No acute process, pending official report. - EKG 0124 Cardiac Rate: NL - rate of 77 BPM EKG Rhythm: Sinus Rhythm Summary of EKG Findings: normal axis, normal intervals, no ischemic changes Re-Evaluation - Re-Evaluation First Eval Re-Evaluation Time: 02:00 Change: Unchanged Comment: 0200 Patient has RBC 3.64, Hgb 7.4m Hct 24. Patient reports Hx of menorrhagia. States period lasts for a week and has been passing clots, has been having this for years. This would explain her anemia. Second Eval Re-Evaluation Time: 04:00 Comment: Admission was discussed with patient, she is agreeable. Abdominal Pain Fem Course/Dx - Course Course Of Treatment: Patient is a 47 y/o F w/ c/o epigastric pain onsetting 02/03. Pain is reported to be constant and wax and wane in intensity. Epigastric pain is noted to radiate to her chest. She also reports some dizziness and nausea. Vomiting, burping, back jenkins, arm pain is denied. PMHx of GERD is denied , PSHx of section is noted. On physical exam, patient is noted to have epigastric tenderness. During ED course, patient received lidocaine 15 ml PO ONCE, Maalox Plus 30 ml PO ONCE. Patient has RBC 3.64, Hgb 7.4m Hct 24. Patient reports Hx of menorrhagia. States period lasts for a week and has been passing clots, has been having this for years. This would explain her anemia. Other labs showed Beta HCG 1.79, lipase 16, amylase 41, glucose 108, RDW 18, MCH 20, MCV 66. EKG snowed sinus rhythm with rate of 77 BPM, normal axis, normal intervals, and no ischemic changes. CXR showed no acute process. First trop was 0, second was 0.06. Patient's case was discussed with Dr. Delgadillo, Dr. Delgadillo accepts patient for admission. Dx of chest pain. - Diagnoses Provider Diagnoses: Chest pain - Provider Notifications Discussed Care Of Patient With: Landy Delgadillo Time Discussed With Above Provider: 04:19 Instructed by Provider To: Other - [id number] hospitalist paged at this time. Dr. Delgadillo states that she will talk to Dr. Arzola shortly. 0502 Dr. Delgadillo called back. Patient's case was discussed with Dr. Delgadillo, Dr. Delgadillo accepts patient for admission. Discharge - Sign-Out/Discharge Documenting (check all that apply): Patient Departure - admit - Discharge Plan Condition: Good Disposition: ADMITTED TO [facility] Referrals: Vishal Fuller MD [Primary Care Provider] - - Attestation Statements Document Initiated by Scribe: Yes Documenting Scribe: Surjit Bach Provider For Whom Scribe is Documenting (Include Credential): Connie Arzola MD Scribe Attestation: ISurjit , scribed for Connie Arzola MD on 02/05/18 at 0526.
[2018-02-05 01:23] LABS: ABS Basophils 0.1 10^3/ul (0-0.2); ABS Eosinophils 0.1 10^3/ul (0-0.6); ABS Lymphocytes 2.1 10^3/ul (1.0-4.8); ABS Monocytes 0.8 10^3/ul (0-0.8); ABS Neutrophils 5.3 10^3/ul (1.5-7.7); ABS Nucleated RBC 0 10^3/ul; Eosinophil % 1.5 % (0-6); Hematocrit 24 % (35-47); Hemoglobin 7.4 g/dl (12.0-16.0); Lymphocyte % 25.2 % (25-47); Mean Corpuscular HGB Conc 31 g/dl (31-36); Mean Corpuscular Hemoglobin 20 pg (27-31); Mean Corpuscular Volume 66 fL (80-97); Mean Platelet Volume 7.4 fL (7.4-10.4); Nucleated Red Blood Cells % 0.1; Platelet Count 377 10^3/ul (150-450); Red Blood Count 3.64 10^6/ul (4.00-5.40); Red Cell Distribution Width 18 % (10.5-15); White Blood Count 8.4 10^3/ul (3.5-10.8)
[2018-02-05 01:30] LABS: INR 0.98 (0.77-1.02)
[2018-02-05 01:40] LABS: EGFR Non-African American 101.7 (>60)
[2018-02-05] MEDS ORDERED: Aspirin 81 mg CHEW TAB* 81 MG TAB.CHEW PO ONE (04:18)
[2018-02-05] MEDS ORDERED: Clopidogrel TAB* 300 MG PO ONE (04:18)
[2018-02-05] MEDS ORDERED: Enoxaparin(*) 60 MG/0.6 ML SYR SUBCUT ONE (04:19)
[2018-02-05] MEDS ORDERED: Acetaminophen TAB* 325 MG PO PRN (05:17)
[2018-02-05] MEDS ORDERED: Omeprazole CAP* 20 MG PO ONE (05:21)
[2018-02-05] MEDS ORDERED: NS 0.9% 1000 ML* 1,000 ML IV SCH ×2 (05:30→09:05)
[2018-02-05 06:12] LABS: EGFR Non-African American 103.6 (>60)
[2018-02-05 06:37] LABS: ABS Basophils 0.1 10^3/ul (0-0.2); ABS Eosinophils 0.1 10^3/ul (0-0.6); ABS Lymphocytes 1.8 10^3/ul (1.0-4.8); ABS Monocytes 0.6 10^3/ul (0-0.8); ABS Neutrophils 4.6 10^3/ul (1.5-7.7); ABS Nucleated RBC 0 10^3/ul; Eosinophil % 1.4 % (0-6); Hematocrit 24 % (35-47); Hemoglobin 7.4 g/dl (12.0-16.0); Lymphocyte % 24.9 % (25-47); Mean Corpuscular HGB Conc 31 g/dl (31-36); Mean Corpuscular Hemoglobin 20 pg (27-31); Mean Corpuscular Volume 65 fL (80-97); Mean Platelet Volume 7.9 fL (7.4-10.4); Nucleated Red Blood Cells % 0; Platelet Count 366 10^3/ul (150-450); Red Blood Count 3.68 10^6/ul (4.00-5.40); Red Cell Distribution Width 18 % (10.5-15); White Blood Count 7.1 10^3/ul (3.5-10.8)
--- NOTE | 2018-02-05 07:15 | ADMNOTE ---
Subjective Date of Service: 02/05/18 Interval History: code status full this is admission h/p hpi this is a 47 yr old aa female with no sig hx and on no meds presented to er with mid epigastric pain started sunday night evening when she was doing her laundry lasted about one hour. pain decribed as burning type 5/10 episodic throughout the night. she thought this epigastric pain would be better but it has persisted until sunday night ----> decided to come to seek medical attention despite her pain level still was 5/10 pt also has lightheadness associated with this epigastric pain her first trop and ekg were neg but second trop was 0.06 ---> got asa/plavix and lovenox from er. pt third trop was neg ekg ordered for am stress test ordered as well pt was found to have hg 7.4 says she ususally would run low around 8 close to 9. this hg was prior to ivf. 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 + htn/dm Family History: Findings - grand mom +htn dm Social History: Findings - no cig no etoh no ivda Past Medical History: Findings - as above Review of Systems - Measurements Intake and Output: Intake and Output Last 24 Hours 02/03/18 02/04/18 02/05/18 02/06/18 06:59 06:59 06:59 06:59 Weight 135 lb pertinent as per hpi - Review of Systems General Comments: pertinent as per hpi Objective Active Medications: Acetaminophen (Tylenol Tab*) 650 mg PO Q4H PRN PRN Reason: FEVER/PAIN Aspirin (Ecotrin Ec Tab*) 325 mg PO DAILY ELIZABETH Sodium Chloride (Ns 0.9% 1000 Ml*) 1,000 mls @ 125 mls/hr IV PER RATE [facility] Vital Signs - 8 hr 02/05/18 02/05/18 02/05/18 00:40 01:01 01:06 Temperature 97.8 F Pulse Rate 84 85 83 Respiratory 16 13 Rate Blood Pressure 123/49 110/68 (mmHg) O2 Sat by Pulse 98 100 99 Oximetry 02/05/18 02/05/18 02/05/18 01:36 02:00 02:06 Temperature Pulse Rate 85 81 81 Respiratory 15 14 17 Rate Blood Pressure 125/86 120/79 (mmHg) O2 Sat by Pulse 100 99 99 Oximetry 02/05/18 02/05/18 02/05/18 02:36 03:00 03:06 Temperature Pulse Rate 73 81 78 Respiratory 16 20 14 Rate Blood Pressure 103/56 115/68 (mmHg) O2 Sat by Pulse 99 100 100 Oximetry 02/05/18 02/05/18 02/05/18 03:36 04:00 04:06 Temperature Pulse Rate 80 84 86 Respiratory 23 16 14 Rate Blood Pressure 114/70 136/87 (mmHg) O2 Sat by Pulse 100 99 100 Oximetry 02/05/18 02/05/18 02/05/18 04:36 05:00 05:06 Temperature Pulse Rate 72 80 80 Respiratory 15 19 14 Rate Blood Pressure 117/79 116/80 (mmHg) O2 Sat by Pulse 99 100 100 Oximetry 02/05/18 02/05/18 02/05/18 05:36 05:59 06:00 Temperature Pulse Rate 81 80 80 Respiratory 16 15 16 Rate Blood Pressure 125/84 130/79 (mmHg) O2 Sat by Pulse 100 99 100 Oximetry 02/05/18 02/05/18 06:20 07:03 Temperature 97.8 F 97.6 F Pulse Rate 78 72 Respiratory 13 20 Rate Blood Pressure 130/79 120/60 (mmHg) O2 Sat by Pulse 99 100 Oximetry Oxygen Devices in Use Now: None Appearance: nad Eyes: No Scleral Icterus, PERRLA Ears/Nose/Mouth/Throat: NL Teeth, Lips, Gums, Clear Oropharnyx, Mucous Membranes Moist Neck: NL Appearance and Movements; NL JVP, Trachea Midline, No Thyroid Enlargement, Masses Respiratory: Symmetrical Chest Expansion and Respiratory Effort, Clear to Auscultation Cardiovascular: NL Sounds; No Murmurs; No JVD, RRR, No Edema Abdominal: - - ns soft + epigatric tenderness upon pressure but no rebound not guarding Extremities: No Edema, No Clubbing, Cyanosis Skin: No Rash or Ulcers Neurological: Alert and Oriented x 3, NL Sensation, NL Muscle Strength and Tone Result Diagrams: 02/05/18 05:40 02/05/18 05:40 EKG Data: ns no acute st t change Assess/Plan/Problems-Billing Assessment: this is a 47 yr aa female with no sig hx presented with epigastric pain. pt initial trop and ekg were both neg but second trop went up to 0.06 ---> third trop went back down to 0.0 ekg pending stress test ordered for am - Patient Problems (1) Epigastric pain Status: Acute Code(s): R10.13 - EPIGASTRIC PAIN SNOMED Code(s): 63439286 Comment: NPO for poss EGD today cont PPI diferential includes gastritis, or ulcer Non cardiac: EKG WNL, trops neg x3 (2) Lightheadedness Status: Acute Code(s): R42 - DIZZINESS AND GIDDINESS SNOMED Code(s): 471843184 Comment: ck orthostatic ivf likely due to anemia (3) Anemia Status: Acute Code(s): D64.9 - ANEMIA, UNSPECIFIED SNOMED Code(s): 881795520 Comment: no prior baseline hg to compare with likely due to meorrhagia, stool guaiac pending will ck iron panel . Tx with IV iron x one dose hemoglobin eletrophroesis protonix bid iv gi called for consult and posssible EGD today. Pt is NPO will call gi to eval (4) Microcytosis Status: Acute Code(s): R71.8 - OTHER ABNORMALITY OF RED BLOOD CELLS SNOMED Code(s): 690507979 Comment: ck b12/folic acid (5) Menometrorrhagia Status: Acute Code(s): N92.1 - EXCESSIVE AND FREQUENT MENSTRUATION WITH IRREGULAR CYCLE SNOMED Code(s): 894204918 Comment: recommended outpatient MARKETING ADMINISTRATOR f/u
[2018-02-05] MEDS ORDERED: Pantoprazole IV* 40 MG IV SCH (08:00)
[2018-02-05 08:56] LABS: Corrected Retic Count 0.5 % (0.5-1.5); Hematocrit for Retic CNT 24 % (35-47); Immature Retic Fraction 0.52; RBC Retic Count 3.67 10^6/ul (4.6-6.2)
[2018-02-05 09:04] LABS: INR 1.03 (0.77-1.02)
--- NOTE | 2018-02-05 09:10 | PN ---
Subjective Date of Service: 02/05/18 Interval History: Pt c/o menorrhagia for "many years". She was anemic-dx by PCP, but didn't take prescribed iron tabs-only MVI Epigastric pain and lightheadedness x several days, no melena or BRBPR Objective Active Medications: Acetaminophen (Tylenol Tab*) 650 mg PO Q4H PRN PRN Reason: FEVER/PAIN Sodium Chloride (Ns 0.9% 1000 Ml*) 1,000 mls @ 125 mls/hr IV PER RATE [facility] Last Admin: 02/05/18 07:48 Dose: 125 mls/hr Pantoprazole Sodium (Protonix Iv*) 40 mg IV Q24H [facility] Last Admin: 02/05/18 08:25 Dose: 40 mg Vital Signs - 8 hr 02/05/18 02/05/18 02/05/18 01:06 01:36 02:00 Temperature Pulse Rate 83 85 81 Respiratory 13 15 14 Rate Blood Pressure 110/68 125/86 (mmHg) O2 Sat by Pulse 99 100 99 Oximetry 02/05/18 02/05/18 02/05/18 02:06 02:36 03:00 Temperature Pulse Rate 81 73 81 Respiratory 17 16 20 Rate Blood Pressure 120/79 103/56 (mmHg) O2 Sat by Pulse 99 99 100 Oximetry 02/05/18 02/05/18 02/05/18 03:06 03:36 04:00 Temperature Pulse Rate 78 80 84 Respiratory 14 23 16 Rate Blood Pressure 115/68 114/70 (mmHg) O2 Sat by Pulse 100 100 99 Oximetry 02/05/18 02/05/18 02/05/18 04:06 04:36 05:00 Temperature Pulse Rate 86 72 80 Respiratory 14 15 19 Rate Blood Pressure 136/87 117/79 (mmHg) O2 Sat by Pulse 100 99 100 Oximetry 02/05/18 02/05/18 02/05/18 05:06 05:36 05:59 Temperature Pulse Rate 80 81 80 Respiratory 14 16 15 Rate Blood Pressure 116/80 125/84 130/79 (mmHg) O2 Sat by Pulse 100 100 99 Oximetry 02/05/18 02/05/18 02/05/18 06:00 06:03 06:20 Temperature 97.6 F 97.8 F Pulse Rate 80 72 78 Respiratory 16 20 13 Rate Blood Pressure 120/60 130/79 (mmHg) O2 Sat by Pulse 100 100 99 Oximetry Oxygen Devices in Use Now: None Appearance: 47 yo F in nAD, aAOx3 Eyes: No Scleral Icterus, PERRLA Ears/Nose/Mouth/Throat: NL Teeth, Lips, Gums, Mucous Membranes Moist Neck: NL Appearance and Movements; NL JVP, Trachea Midline Respiratory: Symmetrical Chest Expansion and Respiratory Effort, Clear to Auscultation Cardiovascular: NL Sounds; No Murmurs; No JVD, No Edema Abdominal: - - + epigastric tenderness, no rebound, no guarding, BS+ Lymphatic: No Cervical Adenopathy Extremities: No Edema, No Clubbing, Cyanosis Skin: No Rash or Ulcers Neurological: Alert and Oriented x 3, NL Muscle Strength and Tone Result Diagrams: 02/05/18 05:40 02/05/18 05:40 EKG Data: ns no acute st t change Assess/Plan/Problems-Billing Assessment: this is a 47 yr aa female with no sig hx presented with epigastric pain. pt initial trop and ekg were both neg but second trop went up to 0.06 ( clarified as lab error, re-run turned out to be 0.00) - Patient Problems (1) Anemia Comment: likely due to meorrhagia, stool guaiac pending will ck iron panel . Tx with IV iron x one dose hemoglobin eletrophroesis protonix bid iv gi called for consult and posssible EGD today. Pt is NPO will call gi to eval (2) Epigastric pain Comment: NPO for poss EGD today cont PPI diferential includes gastritis, or ulcer Non cardiac: EKG WNL, trops neg x3 (3) Lightheadedness Comment: ck orthostatic ivf likely due to anemia (4) Menometrorrhagia Comment: recommended outpatient AMMUNITION ASSEMBLY II LABORER f/u Status and Disposition: OBV
[2018-02-05] MEDS ORDERED: Ferric Gluconate IV* 25 MG in NS 0.9% 50 ML* 50 ML IVPB ONE (09:30)
[2018-02-05] MEDS ORDERED: Ferric Gluconate IV* 100 MG in NS 0.9% 100 ML* 100 ML IVPB ONE (11:30)
[2018-02-05] MEDS ORDERED: Midazolam* 1 MG/ML 10 ML VIAL (10 MG) ONE (14:07)
[2018-02-05] MEDS ORDERED: fentaNYL* 50 MCG/ML 2 ML VIAL (100 MCG VIAL) ONE (14:07)
[2018-02-05 16:15] VITALS: BP 122/74
[2018-02-06] MEDS ORDERED: Aspirin EC TAB* 325 MG PO SCH (06:00)
--- NOTE | 2018-02-06 14:32 | DS ---
CC: Dr. Fuller; Dr. Klein from Gastroenterology * DISCHARGE SUMMARY: DATE OF ADMISSION: 02/05/18 DATE OF DISCHARGE: 02/05/18 PRIMARY CARE PROVIDER: Dr. Fuller DISCHARGE DIAGNOSES: 1. Epigastric pain, likely due to gastritis and duodenal ulcers, noted during EGD performed by Dr. Klein on 02/05/18. 2. Falsely elevated troponin and the corrected value was negative. 3. Microcytic anemia, status post iron infusion during the hospital stay, with the stool that was Hemoccult negative. Suspect this is related to patient's reported menorrhagia. Patient is recommended to follow up with the compressor repairer as outpatient. MEDICATIONS AT DISCHARGE: 1. Ferrous sulfate 325 mg daily. Please start approximately a week after discharge. 2. Omeprazole 20 mg b.i.d. 3. Carafate 1 g 3 times a day as needed for epigastric pain. LABORATORY DATA: Laboratory data pending at time of the end of dictation includes CLOtest to rule out H. pylori as well as pathology report from patient' s endoscopy. LABORATORY DATA OBTAINED DURING THE HOSPITAL STAY: On 02/05/18, sodium of 135, potassium of 4.4, chloride 105, carbon dioxide 26, BUN 14, creatinine is 0.62. Iron level of 21, TIBC of 564, percent iron saturation 4, transferrin 403, troponin 0. Triglycerides , cholesterol of 146, LDL of 85, HDL 51. Vitamin B12 was 201. Folate of 15.8. HOSPITALIZATION COURSE: Neyda Constantino is a 47-year-old female who presented to the hospital complaining of epigastric pain. She had problems with eating due to the pain. Initially, she was observed in the emergency department, but her second troponin was noted to be 0.06 and that necessitated observation on telemetry monitored floor. Later on it was noted that patient's repeat troponin on the same sample as the original that was positive turned out to be negative and it was in fact a lab error. Nevertheless, patient continues to have problems with epigastric pain and she was kept for upper endoscopy performed by Dr. Klein on 02/05/18. The upper endoscopy showed gastritis and 2 duodenal ulcers. Vulcanizer Rubber Plate of the procedure is still pending at the time of dictation. CLOtest and H. pylori testing is further pending at the time of dictation. After the endoscopy procedure, patient wished to go home as soon as possible. She was tolerating food with some discomfort. She was given Carafate prescription on discharge as well as Prilosec. Due to that the iron supplementation may be worsening gastritis initially, patient was asked to abstain from iron supplementation for approximately a week. Please note that patient was noted to have severe microcytic anemia with hemoglobin of 7.4, hematocrit 24, MCV 65. Patient has a history of microcytic anemia in the past. She reported menorrhagia. During the hospital stay, she was given iron infusion. She was recommended to follow up with compressor repairer of her choice in regard to the possibility of treatment and further investigation of her abnormal menstrual bleeding. DISCHARGE INSTRUCTIONS: At discharge, the patient is recommended to follow up with her primary care provider, Dr. Fuller in 4 to 7 days. At this time, the patient is recommended to follow up with Dr. Klein in approximately 1 to 2 weeks. For physical exam at discharge, please see daily progress notes. [id number]/[facility] #: [id number] ROGERIO
--- NOTE | 2018-02-06 16:58 | CONS ---
GASTROENTEROLOGY CONSULT: DATE OF CONSULT: 02/05/18 CONSULTING PHYSICIANS: Vishal Fuller, Jana Finley. REASON FOR CONSULTATION: Upper abdominal pain for two days and microcytic anemia. 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 She felt somewhat dizzy and lightheaded. She was doing a laundry at that time. Pain waxed and wane. She was able to eat a small lunch and small dinner. She was nauseated, but did not vomit. Pain continued the next day and she came to the emergency room overnight and initially attention was directed towards ruling out a cardiac source, so she received aspirin, Plavix, and dose of Lovenox. Then, with microcytic anemia, focus turned to a GI source of pain or peptic disease. She eats a conventional diet and says her bowels are regular with no bleeding She states she has had anemia for several years and Dr Fuller had suggested iron. The patient had on her own picked a multivitamin with iron. She has not mentioned, trying traditional iron supplements. She does take ibuprofen as needed and it is difficult to be sure the frequency, but uses it for headaches, neck pain, and diagnoses from the emergency room urgent care visit history includes back pain, knee injury, ear pain and othe Very significant marital stress with probable marriage breakup soon. PAST MEDICAL HISTORY: 1. Heavy periods - sometimes she observes flow twice a month. She has not had gynecologic visit in 5 or more years. 2. Anemia - see above - the patient's daughter reveals the patient has pica for ice and for Dove soap. SOCIAL HISTORY: She was born and raised in [place]. Her daughter works as a nursing informatics specialist ([employer], ). The patient does not smoke and there is no history of alcohol use or IV drug use. REVIEW OF SYSTEMS: No history of migraines, seizure, syncope, known cardiac disease, palpitations, TIA, CVA, hepatitis, jaundice, abdominal surgery, or indeed any surgery. PHYSICAL EXAM: She is a slender, healthy-appearing woman, in no overt distress. HEENT exam is unremarkable. There is no adenopathy. Her lungs are clear and heart sounds are normal. Breasts and pelvic exam is deferred. The abdomen is symmetric with no scars. She has epigastric deep tenderness, but nonfocal deep and there is no guarding. Stool heme occult was negative on the floor. Extremities are unremarkable. There is no deformity. LABS: CBC; hemoglobin 7.4, MCV 65, platelets 366. INR 1.03. BUN 14, creatinine 0.62. iron panel; iron 21, TIBC 564, saturation 4%. LFTs normal with ALT 9, albumin 3.7, B12 of 201. IMPRESSION: This 47-year-old woman has upper abdominal pain and a severe chronic microcytic anemia. This is probably multifactorial from long-standing gynecologic losses and marginal intake. Pica is quite remarkable. This is probably also some chronic gastrointestinal loss associated, as she takes ibuprofen. Her epigastric pain is probably peptic in origin and gastroscopy is indicated. Colonoscopy should likely follow when she is stabilized as in this circumstance it will be difficult to be sure how many multifactorial factors there are. [id number]/[facility] #: [id number] ROGERIO
--- NOTE | 2018-02-06 16:58 | PRO ---
DATE: 02/05/18 - ROOM #[id number] REFERRING PHYSICIANS: Vishal Fuller; Jana Finley.* PROCEDURE: Upper gastrointestinal endoscopy and biopsy 3rd portion duodenum, gastric antrum with CLOtest, and mid esophagus in area of friability. INDICATION: This 47-year-old woman has been experiencing epigastric pain the last couple of days. There was nausea, but no vomiting. She takes ibuprofen sporadically and was difficult to be sure how often. She denies ever having this kind of symptom before. She has longstanding anemia and takes a multivitamin with low-dose iron. Stool was heme negative ENDOSCOPIST: Dr. Klein MEDICATIONS: Midazolam 7, fentanyl 75. FINDINGS: She is a healthy-appearing, middle-aged black female, in no overt distress. She was positioned on her side and incremental doses of medications given. She tolerated the exam quite well and there were no complications directly or from the sedatives. EGD: Larynx - narrow, small contours and the tongue was very powerful and limiting movements. Esophagus - easily entered and there was a filmy white substance in the mid esophagus, small amount, not typical of monilia. The underlying mucosa appeared normal, though during the withdrawal phase, it appeared that the area had been somewhat friable as there was a little bit of blood. This appeared to be from small little friability breaks in the mucosa in the esophagus, although there were no rings or furrows or typical erosions. The EG junction at 39 appeared normal. There was no hiatal hernia and no scaring. Stomach - normal mucosa in the cardia, fundus, and body. The mucosa appeared micropapillated. The antrum was normal with some small erosions in the mid antrum and prepyloric area. The pylorus was patent. Duodenum - the anterior bulb, mid portion (9 oclock orientation) had a 8-mm ulcer with clean white base. There were no stigmata and the bulb was not deformed. Entrance through the second to fourth portion of the duodenum was easy and normal. Two biopsies were taken of the third portion of the duodenum. During withdrawal, CLOtest, and biopsies of the antral erosions. Biopsies were also taken from the mid esophagus. IMPRESSION: 1. Mild esophageal friability - significance unclear. 2. Antral gastritis - appears typical of NSAID effect, though H. pylori could be playing a role. 3. Duodenal ulcer - as above. 4. Iron deficiency - certainly contributed to in part by the above conditions, but gynecologic losses are probable also. At her age, colonoscopy is advisable. It is notable that she has an unusual pattern of pica, eating Dove soap and also craving ice. Addendum: Clotest positive; duodenum normal and esophagus showed erosive change Patient has been placed on a PPI BID. Given anticipated tolerance challenges with simultaneous oral iron and a full H pylori regimen the alternative approach of parenteral iron, low dose oral iron and delaying HP eradication a couple of weeks might be best tolerated. [id number]/[facility] #: [id number] [facility]
== END 2018-02-05 18:26 | disposition home or self-care (01) ==
LOC: ED 00:37 → MEDTELE 05:17
PROVIDERS: ADMIT Internal Medicine; ATTEND Internal Medicine
DX: R07.9 Chest pain, unspecified (principal); R10.13 Epigastric pain; D64.9 Anemia, unspecified; R42 Dizziness and giddiness; N92.1 Excessive and frequent menstruation with irregular cycle
CPT/HCPCS: 36415; 71045; 80048; 80053; 80061; 82150; 82272; 82550; 82607; 82746; 83020; 83540; 83550; 83690; 83735; 84484; 84702; 85025; 85045; 85610; 85730; 86900; 86901; 87077; 88305; 88312; 88342; 93005; 99156; 99157; 99285; A9270-GY; G0378; J1650; J2250; J2916; J3010

== ENCOUNTER 2019-02-26 12:46 | Emergency (ER) | payer BC ==
--- NOTE | 2019-02-26 15:20 | ED ---
Abdominal Pain/Female - HPI Summary HPI Summary: The patient is a 48 y/o F presenting to [facility] accompanied by family with a chief complaint of epigastric pain onset yesterday. She reports that she had an EGD yesterday with Dr. Wilson at [place], and now she is suffering from severe abdominal pain, nausea, and diarrhea without rectal bleeding. Currently, her pain is rated 8/10 in severity. The EGD was performed because she had an ulcer previously from Ibuprofen use, and it was not seen to be bleeding on yesterday s procedure. However, Dr. Wilson told her that she has a low hemoglobin of 5. She notes that she has menorrhagia with her menstrual cycles, and her last cycle was a week ago, but she is no longer bleeding. Prior to the endoscopy, she was experiencing a sore throat, weakness, and body aches. PMHx: kidney stones, headaches. Nonsmoker, rare EtOH, no substance use. Medications reviewed. Allergies noted. - History of Current Complaint Chief Complaint: EDGeneral Stated Complaint: BLOOD TRANSFUSION PER PT Time Seen by Provider: 02/26/19 15:00 Hx Obtained From: Patient Hx Last Menstrual Period: 06/24/17 Onset/Duration: Lasting Hours - yesterday, Still Present Timing: Constant Severity Initially: Moderate Severity Currently: Severe Pain Intensity: 8 Pain Scale Used: 0-10 Numeric Location: Epigastric Radiates: No Character: Sharp Aggravating Factor(s): Nothing Alleviating Factor(s): Nothing Associated Signs and Symptoms: Positive: Nausea, Diarrhea, Other: - body aches, weakness, sore throat; Negative: rectal bleeding Allergies/Adverse Reactions: Allergies Allergy/AdvReac Type Severity Reaction Status Date / Time No Known Allergies Allergy Verified 02/26/19 12:55 Home Medications: Home Medications Trazodone HCl 50 mg PO DAILY 02/26/19 [History Confirmed 02/26/19] PMH/Surg Hx/FS Hx/Imm Hx Endocrine/Hematology History: Denies: Hx Diabetes, Hx Thyroid Disease Cardiovascular History: Denies: Hx Hypercholesterolemia, Hx Hypertension Respiratory History: Denies: Hx Asthma, Hx Chronic Obstructive Pulmonary Disease (COPD) GI History: Reports: Hx Ulcer History: Reports: Hx Kidney Stones, Other Problems/Disorders - HX RENAL CALCULI Sensory History: Denies: Hx Contacts or Glasses, Hx Hearing Aid Opthamlomology History: Denies: Hx Contacts or Glasses Neurological History: Reports: Hx Headaches Denies: Hx Migraine - Surgical History Surgical History: Yes Surgery Procedure, Year, and Place: - Immunization History Date of Tetanus Vaccine: utd Date of Influenza Vaccine: none Infectious Disease History: No Infectious Disease History: Denies: Hx Clostridium Difficile, Hx Hepatitis, Hx Human Immunodeficiency Virus (HIV), Hx of Known/Suspected MRSA, Hx Shingles, Hx Tuberculosis, Hx Known/ Suspected VRE, Hx Known/Suspected VRSA, History Other Infectious Disease, Traveled Outside the [place] in Last 30 Days - Family History Known Family History: Positive: Hypertension, Diabetes Negative: Cardiac Disease - Social History Alcohol Use: Rare Hx Substance Use: No Substance Use Type: Reports: None Hx Tobacco Use: No Smoking Status (MU): Never Smoked Tobacco Have You Smoked in the Last Year: No Review of Systems Positive: Other - body aches Positive: Sore Throat Positive: Abdominal Pain - epigastric, Diarrhea, Nausea. Negative: Other - rectal bleeding Positive: Weakness All Other Systems Reviewed And Are Negative: Yes Physical Exam - Summary Physical Exam Summary: VITAL SIGNS: Reviewed. GENERAL: Patient is a well-developed and nourished female who is lying comfortable in the stretcher. Patient is not in any acute respiratory distress. HEAD AND FACE: Normocephalic and atraumatic. EYES: PERRLA, EOMI x 2, No injected conjunctiva. EARS: Hearing grossly intact. Ear canals and tympanic membranes are WNL. MOUTH: Oropharynx within normal limits. NECK: Supple, trachea is midline, no adenopathy, no JVD. CHEST: Symmetric, no tenderness at palpation. LUNGS: Clear to auscultation bilaterally. No wheezing or crackles. CVS: RRR, S1 and S2 present, no murmurs or gallops appreciated. ABDOMEN: Soft, non-tender. No signs of distention. Positive bowel sounds. No rebound, no guarding, and no masses palpated. No abdominal bruit or pulsations. EXTREMITIES: FROM in all major joints, no edema, no cyanosis or clubbing. NEURO: Alert and oriented x 3. No acute neurological deficits. Speech is normal. SKIN: Dry and warm. RECTAL: No gross blood. No hemorrhoids. Triage Information Reviewed: Yes Vital Signs On Initial Exam: Initial Vitals Temp Pulse Resp BP Pulse Ox 99.0 F 98 16 139/86 100 02/26/19 12:49 02/26/19 12:49 02/26/19 12:49 02/26/19 12:49 02/26/19 12:49 Vital Signs Reviewed: Yes Procedures - Sedation Patient Received Moderate/Deep Sedation with Procedure: No Diagnostics - Vital Signs Vital Signs Temp Pulse Resp BP Pulse Ox 02/26/19 12:49 99.0 F 98 16 139/86 100 - Laboratory Result Diagrams: 02/26/19 16:17 02/26/19 16:17 Lab Statement: Any lab studies that have been ordered have been reviewed, and results considered in the medical decision making process. - Radiology Abdominal X-Ray Radiology Interpretation Completed By: Radiologist Summary of Radiographic Findings: Impression: No free air or obstruction is noted. ED physician has reviewed this report. - EKG 1608 Cardiac Rate: Tachycardia - 103 BPM EKG Rhythm: Sinus Tachycardia EKG Comparison: No Significant Change - Similar to previous on 02/06/19. Summary of EKG Findings: EKG at 1608 reveals sinus tachycardia at [address] elevations. ED physician has reviewed and interpreted this EKG. Re-Evaluation - Re-Evaluation First Eval Re-Evaluation Time: 17:50 Change: Improved Comment: Her pain has improved. We discussed all results and plan for discharge. Abdominal Pain Fem Course/Dx - Course Course Of Treatment: This patient is a 48-year-old female who presents to the emergency department with a chief complaint of epigastric pain and nausea with vomiting. She reports that she had an endoscopy yesterday to recheck for an ulcer with Dr. Wilson from [place], and it was negative. He reported the ulcer has healed. He recommended no Ibuprofen since it was the cause of the gastric ulcer. Today, the mattress and foundation sewer called her to come to the ED because the primary H&H was low. Patient denies any black stools or rectal bleeding. Initially vital signs are stable. Patient was placed on a school lunch monitor, IV access was obtained, and she was given IV fluids, Protonix, and morphine for the pain. Patient reports that she has a heavy menstrual period for years, and she is always anemic. She had vaginal bleeding until 2 days ago but now it has subsided. Since the patient does have any source of bleeding, the vital signs are stable, so it is likely this is a chronic issue for this patient. Therefore I do not believe that the patient needs a blood transfusion at this time. We had a prolonged discussion about the benefits and risks of blood transfusion and at this time she does not need the transfusion. She will follow-up with OB/ SEMICONDUCTOR BONDER. However, the patient was instructed to return to the emergency department if she develops any palpitations, shortness of breath, dizziness, feeling that she is going to pass out, or any other complaint. - Diagnoses Provider Diagnoses: Anemia, Epigastric pain Discharge ED - Sign-Out/Discharge Documenting (check all that apply): Patient Departure - Patient will be discharged home. - Discharge Plan Condition: Stable Disposition: HOME Prescriptions: HYDROcodone/ACETAMIN 5-325 MG* [[place] 5-325 TAB*] 1 tab PO Q6H PRN #10 tab MDD 4 PRN Reason: Pain - Severe Patient Education Materials: Anemia (ED), Epigastric Pain (ED) Referrals: Pavel Barnes MD [Medical Doctor] - 3 Days Vishal Fuller MD [Primary Care Provider] - 3 Days Additional Instructions: Follow up with SENIOR INFORMATION SECURITY ENGINEER in 2-3 days. Follow up with your primary care provider in 2-3 days. Return to the emergency department for any new or worsening symptoms. - Billing Disposition and Condition Condition: STABLE Disposition: Home - Attestation Statements Document Initiated by Eri: Yes Documenting Scribe: Donita Weeks Provider For Whom Eri is Documenting (Include Credential): Dr. Jonathan Browne MD Scribe Attestation: Donita Vo scribed for Dr. Jonathan Browne MD on 02/27/19 at 1848. Scribe Documentation Reviewed: Yes Provider Attestation: The documentation as recorded by the Donita hinojosa accurately reflects the service I personally performed and the decisions made by me, Dr. Jonathan Browne MD Status of Eri Document: Viewed
[2019-02-26] MEDS ORDERED: Pantoprazole IV* 40 MG IV ONE (16:01)
[2019-02-26] MEDS ORDERED: Ondansetron INJ* 2 MG/ML VIAL IV ONE (16:01)
[2019-02-26] MEDS ORDERED: NS 0.9% 1000 ML** 1,000 ML IV ONE (16:01)
[2019-02-26] MEDS ORDERED: Morphine 4 MG/ML VIAL (1 ml) 4 MG/ML VIAL IV ONE (16:01)
[2019-02-26 16:38] LABS: Hematocrit 23 % (35-47); Mean Corpuscular HGB Conc 31 g/dL (31-36); Mean Corpuscular Hemoglobin 18 pg (27-31); Mean Corpuscular Volume 60 fL (80-97); Mean Platelet Volume 7.5 fL (7.4-10.4); Platelet Count 401 10^3/uL (150-450); Red Blood Count 3.78 10^6 /uL (3.70-4.87); Red Cell Distribution Width 18 % (10-15); White Blood Count 10.5 10^3/uL (3.5-10.8)
[2019-02-26 16:52] LABS: Albumin 3.9 g/dL (3.2-5.2); Anion Gap 6 mmol/L (2-11); CO2 Carbon Dioxide 25 mmol/L (22-32); Calcium 9.9 mg/dL (8.6-10.3); Chloride 103 mmol/L (101-111); Potassium 3.6 mmol/L (3.5-5.0); Sodium 134 mmol/L (135-145)
[2019-02-26 16:59] LABS: ALT 8 U/L (7-52); AST 14 U/L (13-39); Alkaline Phosphatase 51 U/L (34-104); BUN/Creatinine Ratio 9.5 (8-20); Blood Urea Nitrogen 7 mg/dL (6-24); EGFR African American 101.8 (>60); EGFR Non-African American 84.1 (>60); Globulin 3.8 g/dL (2-4); Glucose 100 mg/dL (70-100); Total Protein 7.7 g/dL (6.4-8.9)
[2019-02-26 17:02] LABS: Microcytosis 3+
[2019-02-26 17:03] LABS: Polychromasia 1+
[2019-02-26 18:30] VITALS: BP 115/73
== END 2019-02-26 18:15 | disposition home or self-care (01) ==
LOC: ED 12:46
DX: R10.13 Epigastric pain (principal); D64.9 Anemia, unspecified; Z79.899 Other long term (current) drug therapy
CPT/HCPCS: 36415; 74019; 80053; 82270; 83605; 83690; 85025; 85060; 86140; 86850; 86900; 86901; 93005; 96361; 96374; 96375; 99284; J2270; J2405

== ENCOUNTER 2019-05-29 15:18 | Emergency (ER) | payer BC ==
[2019-05-29 15:31] VITALS: BP 116/70
--- NOTE | 2019-05-29 16:15 | UC ---
Abdominal Pain Female HPI - HPI Summary HPI Summary: 48 yo female presents with epigastric pain. She tells me that she has history of anemia and gastric ulcers. Last night she was eating [employer] and developed severe epigastric pain toward the end of her meal. She felt like she had to vomit, but could not. She had a BM with no relief. She was up all night due to pain. This morning she reports her pain has decreased, but is still present. She feels very fatigued, but tried to go to work this morning - her coworkers told her she did not look well and encouraged her to be seen. She has never had a blood transfusion in the past, but states she has come close on one or two occasions as her levels were "borderline". She takes daily iron supplements. She has heavy menstrual periods, for which she is scheduled to see CERTIFIED PHYSICAL THERAPIST ASSISTANT in early May. LMP was 1 week ago. She denies fever, SOB, chest pain, palpitations, back pain, hematuria, blood in stool, dysuria. - History of Current Complaint Chief Complaint: UCAbdominalPain Stated Complaint: ABDOMINAL PAIN Time Seen by Provider: 05/29/19 16:15 Hx Obtained From: Patient Hx Last Menstrual Period: Onset/Duration: Sudden Onset Severity Initially: Severe Severity Currently: Moderate Pain Intensity: 6 Allergies/Adverse Reactions: Allergies Allergy/AdvReac Type Severity Reaction Status Date / Time No Known Allergies Allergy Verified 05/29/19 15:31 Home Medications: Home Medications Ferrous Sulfate TAB* 325 mg PO DAILY #30 tab 02/05/18 [Rx Confirmed 05/29/19] Omeprazole CAP (NF) [Prilosec CAP* 20 MG] 20 mg PO BID #60 02/05/18 [Rx Confirmed 05/29/19] Acetaminophen TAB* [Tylenol TAB*] 975 mg PO Q6H PRN 05/29/19 [History Confirmed 05/29/19] PMH/Surg Hx/FS Hx/Imm Hx - Additional Past Medical History Additional PMH: Anemia Gastric ulcers GI/ History: Ulcer - Surgical History Surgical History: Yes Surgery Procedure, Year, and Place: - Family History Known Family History: Positive: Hypertension, Diabetes Negative: Cardiac Disease - Social History Lives: With Family Alcohol Use: None Substance Use Type: None Smoking Status (MU): Never Smoked Tobacco Have You Smoked in the Last Year: No Review of Systems All Other Systems Reviewed And Are Negative: No Constitutional: Positive: Fatigue Skin: Positive: Negative Eyes: Positive: Negative ENT: Positive: Negative Respiratory: Positive: Negative Cardiovascular: Positive: Negative Gastrointestinal: Positive: Abdominal Pain, Nausea Genitourinary: Positive: Negative Neurovascular: Positive: Negative Musculoskeletal: Positive: Negative Neurological/Mental Status: Positive: Negative Psychological: Positive: Negative Physical Exam - Summary Physical Exam Summary: GENERAL: NAD. Appears fatigued. SKIN: No rashes, sores, or open wounds. Dry mucous membranes. HEENT: Head: AT/NC Eyes: PERRLA. EOM intact. Conjunctiva pale without inflammation or discharge. Ears: Hearing grossly normal. TMs intact, no bulging, erythema, or edema. Nose: Nasal mucosa pink and moist. NTTP maxillary and frontal sinus. Throat: Posterior oropharynx without exudates, erythema, or tonsillar enlargement. Uvula midline. NECK: Supple. Nontender. No lymphadenopathy. CHEST: CTAB. No r/r/w. No accessory muscle use. Breathing comfortably and in no distress. CV: RRR. Pulses intact. Brisk cap refill. ABDOMEN: Soft. Mild ttp epigastric region. No distention or guarding. No CVA tenderness. Bowel sounds present NEURO: Alert. PSYCH: Age appropriate behavior. Triage Information Reviewed: Yes Vital Signs: Initial Vital Signs Temp 98.7 F 05/29/19 15:26 Pulse 76 05/29/19 15:26 Resp 16 05/29/19 15:26 BP 116/70 05/29/19 15:26 Pulse Ox 100 05/29/19 15:26 Vital Signs Reviewed: Yes Abd Pain Female Course/Dx - Course Course Of Treatment: Pt appears quite fatigued and likely moderately-severely anemic based on her presentation and pmhx. Given her epigastric pain and hx of ulcer - this could be the etiology. I recommend that she go to the ED for further evaluation of her symptoms - she was agreeable to this and her with her will drive her. - Differential Dx/Diagnosis Provider Diagnosis: Epigastric pain, Anemia Discharge ED - Sign-Out/Discharge Documenting (check all that apply): Patient Departure All imaging exams completed and their final reports reviewed: No Studies - Discharge Plan Condition: Fair Disposition: HOME-RECOMMEND TO ED Referrals: Frisco,Vishal, MD [Primary Care Provider] - - Billing Disposition and Condition Condition: FAIR Disposition: Home-Recommend to ED
== END 2019-05-29 16:15 | disposition home health service (06) ==
LOC: UCEAST 15:18
DX: R10.13 Epigastric pain (principal); D64.9 Anemia, unspecified; R53.83 Other fatigue; R11.0 Nausea
CPT/HCPCS: 99213; G0463

== ENCOUNTER 2019-05-29 17:18 | Emergency (ER) | payer BC ==
--- NOTE | 2019-05-29 17:46 | ED ---
Abdominal Pain/Female - HPI Summary HPI Summary: Patient complains of upper abdominal pain, nausea and vomiting, lightheadedness and headache. Patient sent from urgent care to ED for further evaluation of anemia. Abdominal pain is worse with eating, history of same. Patient has history of GERD and, gastritis, ulcers, anemia. Heavy menstruations. Denies fever, cough, sore throat, CP, SOB, diarrhea, change in urine, vaginal symptoms. - History of Current Complaint Chief Complaint: EDAbdPain Stated Complaint: ABD PAIN PER PT Time Seen by Provider: 05/29/19 17:44 Hx Obtained From: Patient Hx Last Menstrual Period: Onset/Duration: Gradual Onset, Lasting Days Timing: Intermittent Episode Lasting Severity Initially: Moderate Severity Currently: Moderate Pain Intensity: 6 Pain Scale Used: 0-10 Numeric Location: Epigastric Radiates: No Character: Burning Aggravating Factor(s): Food Alleviating Factor(s): Spontaneous Resolution Associated Signs and Symptoms: Positive: Decreased Appetite, Nausea, Vomiting. Negative: Blood in Stool Allergies/Adverse Reactions: Allergies Allergy/AdvReac Type Severity Reaction Status Date / Time No Known Allergies Allergy Verified 05/29/19 17:37 Home Medications: Home Medications Ferrous Sulfate TAB* 325 mg PO DAILY #30 tab 02/05/18 [Rx Confirmed 05/29/19] Omeprazole CAP (NF) [Prilosec CAP* 20 MG] 20 mg PO BID #60 cap.dr 02/05/18 [Rx Confirmed 05/29/19] Acetaminophen TAB* [Tylenol TAB*] 975 mg PO Q6H PRN 05/29/19 [History Confirmed 05/29/19] Lidocaine 2% VISCOUS* [Xylocaine 2% Viscous*] 15 ml SWISH SWAL Q6H PRN #1 btl [Rx] Ondansetron ODT TAB* [Zofran 4 MG Odt TAB*] 4 mg PO Q8H PRN 4 Days #14 tab.odt 05/29/19 [Rx] PMH/Surg Hx/FS Hx/Imm Hx Endocrine/Hematology History: Denies: Hx Diabetes, Hx Thyroid Disease Cardiovascular History: Denies: Hx Hypercholesterolemia, Hx Hypertension Respiratory History: Denies: Hx Asthma, Hx Chronic Obstructive Pulmonary Disease (COPD) GI History: Reports: Hx Ulcer History: Reports: Hx Kidney Stones, Other Problems/Disorders - HX RENAL CALCULI Sensory History: Denies: Hx Contacts or Glasses, Hx Hearing Aid Opthamlomology History: Denies: Hx Contacts or Glasses EENT History: Denies: Hx Deafness Neurological History: Reports: Hx Headaches Denies: Hx Migraine - Surgical History Surgery Procedure, Year, and Place: - Immunization History Date of Tetanus Vaccine: utd Date of Influenza Vaccine: none Immunizations Up to Date: Yes Infectious Disease History: No Infectious Disease History: Denies: Hx Clostridium Difficile, Hx Hepatitis, Hx Human Immunodeficiency Virus (HIV), Hx of Known/Suspected MRSA, Hx Shingles, Hx Tuberculosis, Hx Known/ Suspected VRE, Hx Known/Suspected VRSA, History Other Infectious Disease, Traveled Outside the [place] in Last 30 Days - Family History Known Family History: Positive: Hypertension, Diabetes Negative: Cardiac Disease - Social History Alcohol Use: None Hx Substance Use: No Substance Use Type: Reports: None Hx Tobacco Use: No Smoking Status (MU): Never Smoked Tobacco Have You Smoked in the Last Year: No Review of Systems Constitutional: Negative Eyes: Negative ENT: Negative Cardiovascular: Negative Respiratory: Negative Positive: Abdominal Pain, Vomiting, Nausea Genitourinary: Negative Musculoskeletal: Negative Skin: Negative Neurological/Mental Status: Negative Psychological: Normal All Other Systems Reviewed And Are Negative: Yes Physical Exam - Summary Physical Exam Summary: Tenderness in epigastrium and left upper quadrant. Abdominal exam otherwise unremarkable. Triage Information Reviewed: Yes Vital Signs On Initial Exam: Initial Vitals Temp Pulse Resp BP Pulse Ox 98.2 F 75 16 122/74 100 05/29/19 17:18 05/29/19 17:18 05/29/19 17:18 05/29/19 17:18 05/29/19 17:18 Vital Signs Reviewed: Yes Appearance: Positive: Well-Appearing Skin: Positive: Warm Head/Face: Positive: Normal Head/Face Inspection Eyes: Positive: Normal Neck: Positive: Supple Respiratory/Lung Sounds: Positive: Clear to Auscultation Cardiovascular: Positive: Normal Abdomen Description: Positive: Other: Musculoskeletal: Positive: Normal Neurological: Positive: Normal Psychiatric: Positive: Normal AVPU Assessment: Alert - [place] Coma Scale Best Eye Response: 4 - Spontaneous Best Motor Response: 6 - Obeys Commands Best Verbal Response: 5 - Oriented Coma Scale Total: 15 Procedures - Sedation Patient Received Moderate/Deep Sedation with Procedure: No Diagnostics - Vital Signs Vital Signs Temp Pulse Resp BP Pulse Ox 05/29/19 17:34 78 135/73 100 05/29/19 17:18 98.2 F 75 16 122/74 100 - Laboratory Result Diagrams: 05/29/19 18:17 05/29/19 18:17 Lab Statement: Any lab studies that have been ordered have been reviewed, and results considered in the medical decision making process. Abdominal Pain Fem Course/Dx - Course Course Of Treatment: Patient complains of upper abdominal pain, nausea and vomiting, lightheadedness and headache. Patient sent from urgent care to ED for further evaluation of anemia. Abdominal pain is worse with eating, history of same. Patient has history of GERD and, gastritis, ulcers, anemia. Heavy menstruations. Denies fever, cough, sore throat, CP, SOB, diarrhea, change in urine, vaginal symptoms. Vital signs within normal limits. Hemoglobin 7.6 which is patient baseline. History of iron deficiency anemia, currently taking iron. Labs otherwise unremarkable. EKG sinus rhythm, heart rate of 67, normal P axis. Abdominal symptoms resolved with GI cocktail and Zofran. Patient has had decreased by mouth intake due to abdominal pain and nausea and vomiting. Lightheadedness possibly due to dehydration as anemia is a patient baseline. Last follow-up with GI for further evaluation of gastritis , and primary care for anemia. Discussed patient with Dr. Wilkins who agreed. - Diagnoses Provider Diagnoses: Anemia, Gastritis Discharge ED - Sign-Out/Discharge Documenting (check all that apply): Patient Departure - Discharge Plan Condition: Stable Disposition: HOME Prescriptions: Lidocaine 2% VISCOUS* [Xylocaine 2% Viscous*] 15 ml SWISH SWAL Q6H PRN #1 btl PRN Reason: Pain - Moderate Ondansetron ODT TAB* [Zofran 4 MG Odt TAB*] 4 mg PO Q8H PRN 4 Days #14 tab.odt PRN Reason: Nausea Patient Education Materials: Gastritis (ED), Anemia (ED) Referrals: Vishal Fuller MD [Primary Care Provider] - Elvin Shetty MD [Medical Doctor] - Additional Instructions: Follow-up with primary care for further evaluation of anemia. Follow-up with GI Dr. Shetty for further evaluation of gastritis. Return to the ED for any new or worsening symptoms. - Billing Disposition and Condition Condition: STABLE Disposition: Home
[2019-05-29] MEDS ORDERED: Lidocaine 2% VISCOUS* 15 ML UDC PO ONE (18:00)
[2019-05-29] MEDS ORDERED: Al Hydrox/Mg Hydrox/Simet LIQ* 30 ML UDC PO ONE (18:00)
[2019-05-29 18:07] LABS: Urine Appearance Clear; Urine Bilirubin Negative (Negative); Urine Blood Negative (Negative); Urine Color Yellow; Urine Glucose Negative (Negative); Urine Ketones Negative (Negative); Urine Nitrite Negative (Negative); Urine Protein Negative (Negative); Urine Specific Gravity 1.013 (1.010-1.030); Urine Urobilinogen Negative (Negative)
[2019-05-29 18:34] LABS: ABS Eosinophils 0.1 10^3/ul (0-0.6); ABS Lymphocytes 1.9 10^3/ul (1.0-4.8); ABS Monocytes 0.5 10^3/ul (0-0.8); ABS Neutrophils 2.5 10^3/ul (1.5-7.7); Eosinophil % 1.1 %; Hematocrit 24 % (35-47); Hemoglobin 7.6 g/dL (12.0-16.0); Lymphocyte % 39.3 %; Mean Corpuscular HGB Conc 32 g/dL (31-36); Mean Corpuscular Hemoglobin 21 pg (27-31); Mean Corpuscular Volume 65 fL (80-97); Mean Platelet Volume 8.4 fL (7.4-10.4); Platelet Count 324 10^3/uL (150-450); Red Cell Distribution Width 25 % (10-15)
[2019-05-29 18:35] LABS: INR 1.11 (0.82-1.09)
[2019-05-29 18:43] LABS: ALT 8 U/L (7-52); AST 15 U/L (13-39); Albumin 4.2 g/dL (3.2-5.2); Albumin/Globulin Ratio 1.2 (1-3); Alkaline Phosphatase 58 U/L (34-104); Anion Gap 7 mmol/L (2-11); BUN/Creatinine Ratio 18.3 (8-20); Blood Urea Nitrogen 13 mg/dL (6-24); C Reactive Protein < 1.00 mg/L (<8.01); CO2 Carbon Dioxide 26 mmol/L (22-32); Calcium 9.5 mg/dL (8.6-10.3); Chloride 105 mmol/L (101-111); EGFR African American 106.8 (>60); EGFR Non-African American 88.2 (>60); Globulin 3.6 g/dL (2-4); Glucose 92 mg/dL (70-100); Potassium 3.4 mmol/L (3.5-5.0); Sodium 138 mmol/L (135-145); Total Protein 7.8 g/dL (6.4-8.9)
[2019-05-29 19:09] LABS: TSH (Thyroid Stimulating Horm) 0.8 mcIU/mL (0.34-5.60)
[2019-05-29 19:11] LABS: Microcytosis 2+; Polychromasia 1+
[2019-05-29] MEDS ORDERED: Pantoprazole IV* 40 MG IV ONE (19:46)
[2019-05-29] MEDS ORDERED: NS 0.9% 1000 ML** 1,000 ML IV ONE (19:46)
[2019-05-29] MEDS ORDERED: Ondansetron INJ* 2 MG/ML VIAL IV ONE (19:46)
[2019-05-29] MEDS ORDERED: Acetaminophen TAB* 325 MG PO ONE (20:46)
[2019-05-29 21:50] VITALS: BP 126/81
== END 2019-05-29 21:45 | disposition home or self-care (01) ==
LOC: ED 17:18
DX: K29.70 Gastritis, unspecified, without bleeding (principal); R10.10 Upper abdominal pain, unspecified; D64.9 Anemia, unspecified; Z87.442 Personal history of urinary calculi
CPT/HCPCS: 36415; 80053; 81003; 83690; 84443; 84484; 85025; 85060; 85610; 86140; 93005; 96361; 96374; 96375; 99284; A9270-GY; J2405